=== PATIENT | male | born 1950 | race Caucasian/White ===

== ENCOUNTER → 2023-08-31 13:38 | Outpatient (BNVA) | payer MEDICARE, SELFPAY | PROVIDERS: PCP Family Medicine; Referring Provider Family Medicine; Visit Provider Psychiatry & Neurology Neurology | DX: R29.2 Abnormal reflex (principal); G20.A1 Parkinson's disease without dyskinesia, without mention of fluctuations | CPT/HCPCS: 99205; G2212 ==

== ENCOUNTER → 2023-11-30 08:14 | Outpatient (BNVA) | payer MEDICARE, SELFPAY | PROVIDERS: PCP Family Medicine; Referring Provider Family Medicine; Visit Provider Psychiatry & Neurology Neurology | DX: R29.2 Abnormal reflex (principal); G20.C Parkinsonism, unspecified | CPT/HCPCS: 99215 ==

== ENCOUNTER → 2023-12-16 02:12 | Outpatient (CLI) | payer MEDICARE, SELFPAY ==
--- NOTE | 2023-12-16 06:45 | DI.MRI_ITS ---
Exam(s) MR CERVICAL SPINE WO EXAM: MR CERVICAL SPINE WO CLINICAL HISTORY: Bilateral Babinkis reflex,r29.2 TECHNIQUE: Multiplanar multisequence MRI of the cervical spine was performed without intravenous con trast. COMPARISON: No exams were available for comparison FINDINGS: BONES: Vertebral body heights are maintained. Intervertebral disc spaces are normal. Alignment is nor mal. Bone marrow signal intensity is within normal limits. CERVICAL CORD: Craniovertebral junction is unremarkable. The cervical cord is normal size and signal intensity. SOFT TISSUES: Unremarkable. C2-3: No disc herniation or bulge is identified. No significant central spinal canal or neural forami nal stenosis. C3-4: There is mild prominence of the osteophyte disc complex. No significant central spinal canal o r neural foraminal stenosis C4-5: No disc herniation or bulge is identified. No significant central spinal canal or right neural foraminal stenosis. Mild degenerative changes seen at the facets on the left. There is mild narrowi ng of the left neural foramen. C5-6: Mild prominence of the osteophyte disc complex. No significant central spinal canal or neural foraminal stenosis C6-7: Mild prominence of the osteophyte disc complex. No significant central spinal canal or neural foraminal stenosis C7-T1: No disc herniation or bulge is identified. No significant central spinal canal or neural ludin inal stenosis IMPRESSION: 1. Normal signal and appearance of the spinal cord. 2. Degenerative changes seen in the cervical spine particularly at C4-C5 where there is mild left loc ral foraminal narrowing. DATA REPOSITORY:
--- NOTE | 2023-12-16 06:45 | DI.MRI_ITS ---
Exam(s) MR BRAIN WO EXAM: MR BRAIN WO CLINICAL HISTORY: bilateral Babinskis; Parkinsons,r29.2 TECHNIQUE: Multiplanar multisequence MRI of the brain was performed. COMPARISON: No exams were available for comparison FINDINGS: The examination is limited due to patient motion artifact. VENTRICLES AND EXTRA AXIAL SPACES: Normal in size and morphology for the patient's age. MIDLINE SHIFT: None. CEREBRAL PARENCHYMA: No focus of restricted diffusion to suggest acute infarct. No space-occupying le ananda identified. There are scattered areas of hyperintense signal seen in the white matter on the T2 and FLAIR images likely reflecting chronic microvascular ischemic disease. On the gradient images th ere is loss of the normal linear hypointense signal in the region of the substantia nigra which can b e seen with Parkinson's disease. HEMORRHAGE: None. BRAINSTEM/CEREBELLUM: Normal. CALVARIUM: Normal. VISUALIZED PARANASAL SINUSES/MASTOIDS:Mild mucosal thickening in the ethmoid air cells bilaterally. The remaining visualized paranasal sinuses and mastoid air cells are clear. [place] OF BREWER: Normal flow void. PITUITARY GLAND: Unremarkable. OTHER FINDINGS: None. IMPRESSION: 1. The examination is limited due to patient motion artifact. 2. Loss of the normal linear appearance of the hypointense signal in the region of the substantia nig ra. This can be seen in Parkinson's disease. 3. Age-related cerebral atrophy and small vessel ischemic disease. 4. No evidence of an acute infarct. DATA REPOSITORY:
== END ==
PROVIDERS: PCP Family Medicine; Visit Provider Psychiatry & Neurology Neurology
DX: M50.121 Cervical disc disorder at C4-C5 level with radiculopathy (principal); M99.61 Osseous and subluxation stenosis of intervertebral foramina of cervical region; G20.A1 Parkinson's disease without dyskinesia, without mention of fluctuations
CPT/HCPCS: 70551; 72141

== ENCOUNTER → 2023-12-30 00:55 | Outpatient (CLI) | payer MEDICARE, SELFPAY ==
--- NOTE | 2023-12-30 13:52 | DI.MRI_ITS ---
Exam(s) MR THORACIC SPINE WO EXAM: MR THORACIC SPINE WO CLINICAL HISTORY: bilateral Babinski reflex, imbalance,R29.2. TECHNIQUE: Multiplanar multisequence MRI of the Thoracic spine was performed. COMPARISON: MR MR CERVICAL SPINE WO from 12/16/2023 FINDINGS: Bones: The vertebral body heights are well maintained. Alignment is satisfactory. The marrow signal characteristics are unremarkable. Hemangioma in T11. Cord: The thoracic cord is normal size and signal intensity. No intrinsic cord lesion is present. C onus medullaris terminates at T12-L1. Soft tissues: Normal. Discs: Anterior disc space narrowing and endplate osteophyte formation in the mid thoracic region. T he endplate osteophytes project minimally into the central canal. No significant neural foraminal na rrowing. IMPRESSION: Mild degenerative disc changes without significant encroachment into the central canal or neural fora sherita narrowing. Normal cord signal. DATA REPOSITORY:
== END ==
PROVIDERS: PCP Family Medicine; Visit Provider Psychiatry & Neurology Neurology
DX: M51.34 Other intervertebral disc degeneration, thoracic region (principal)
CPT/HCPCS: 72146

== ENCOUNTER → 2024-02-01 08:48 | Outpatient (BNVA) | payer MEDICARE, SELFPAY | PROVIDERS: PCP Family Medicine; Referring Provider Family Medicine; Visit Provider Psychiatry & Neurology Neurology | DX: G20.C Parkinsonism, unspecified (principal); R29.2 Abnormal reflex | CPT/HCPCS: 99214 ==

== ENCOUNTER → 2024-08-01 08:05 | Outpatient (BNVA) | payer MEDICARE, SELFPAY | PROVIDERS: PCP Family Medicine; Referring Provider Family Medicine; Visit Provider Psychiatry & Neurology Neurology | DX: G20.C Parkinsonism, unspecified (principal); G47.00 Insomnia, unspecified; R55 Syncope and collapse; R20.8 Other disturbances of skin sensation; R29.2 Abnormal reflex | CPT/HCPCS: 99214 ==

== ENCOUNTER → 2025-01-30 08:18 | Outpatient (BNVA) | payer MEDICARE, SELFPAY | PROVIDERS: PCP Family Medicine; Visit Provider Psychiatry & Neurology Neurology | DX: G20.C Parkinsonism, unspecified (principal); G47.00 Insomnia, unspecified; R55 Syncope and collapse; R20.8 Other disturbances of skin sensation; R29.2 Abnormal reflex | CPT/HCPCS: 99215 ==

== ENCOUNTER → 2025-07-31 08:18 | Outpatient (BNVA) | payer MEDICARE, SELFPAY | PROVIDERS: PCP Family Medicine; Referring Provider Family Medicine; Visit Provider Psychiatry & Neurology Neurology | DX: G20.C Parkinsonism, unspecified (principal); R29.2 Abnormal reflex; G47.00 Insomnia, unspecified; R55 Syncope and collapse; R20.8 Other disturbances of skin sensation; K59.00 Constipation, unspecified | CPT/HCPCS: 99214 ==